=== PATIENT | male | born 1995 | race Caucasian/White ===

== ENCOUNTER 2018-12-30 11:34 | Emergency (ER) | payer BC, SELFPAY ==
[~2018-12-30] VITALS: Ht 185.4 cm; Wt 80.6 kg
[2018-12-30 11:35] VITALS: BP 139/77
[2018-12-30] MEDS ORDERED: DERMABOND TOPICAL SKIN ADHESIVE TOP ONE (12:30)
== END 2018-12-30 13:57 | disposition home or self-care (01) ==
LOC: M ED 11:34
DX: S01.21XA Laceration without foreign body of nose, initial encounter (principal); W26.8XXA Contact with other sharp object(s), not elsewhere classified, initial encounter; Y92.9 Unspecified place or not applicable; Y93.22 Activity, ice hockey; Y99.9 Unspecified external cause status; Z88.8 Allergy status to other drugs, medicaments and biological substances

== ENCOUNTER → 2019-05-24 | Outpatient (CLI) | payer BC, MEDICAID ==
--- NOTE | 2019-05-24 12:44 | REP ---
MRI LEFT SHOULDER WITHOUT CONTRAST: HISTORY: Rotator cuff injury. Fracture left shoulder. Sprain left acromioclavicular joint. History of trauma. No available comparison radiographs. TECHNIQUE: Axial, oblique coronal and oblique sagittal imaging planes utilized. T1- and T2-weighted scans were included with and without fat saturation. MRI FINDINGS: There is considerable periarticular edema associated at the acromioclavicular joint. There is mild diastases and effusion is seen in the joint. Periarticular soft tissue edema is seen and there is mild marrow edema in the distal clavicle. No occult fracture is apparent. There is edema along the course of the coracoclavicular ligament although the ligament fibers do not appear to be disrupted on MR images. The inferior aspect of the distal clavicle may be slightly superior in position as compared to the inferior cortex of the acromion process. Cortical and medullary bone signal intensity are normal in the proximal humerus. There are two tiny subcortical cysts superolaterally in the humeral head. The subscapularis, infraspinatus, and biceps tendons appear intact. There is swelling and increased signal intensity along the course of the distal aspect of the supraspinatus tendon consistent with tendinosis. No focal supraspinatus cuff tear is seen. No labral disruption is seen. IMPRESSION: Findings consistent with a mild AC separation injury and contusion the AC joint distal clavicle and periarticular soft tissues. Tendinosis-tendonitis change in the supraspinatus tendon. Electronically Signed by Renzo Avila MD 05/24/2019 02:32 P
== END ==
LOC: M RAD 09:22
PROVIDERS: ATTEND Orthopaedic Surgery Sports Medicine
DX: S43.52XA Sprain of left acromioclavicular joint, initial encounter (principal); X58.XXXA Exposure to other specified factors, initial encounter; Y92.9 Unspecified place or not applicable; M75.32 Calcific tendinitis of left shoulder